=== PATIENT | female | born 1990 | race Caucasian/White ===

== ENCOUNTER 2021-04-29 04:28 | Outpatient (CLI) | payer MEDICAID, SELFPAY ==
[2021-04-29 10:57] LABS: Abs Immature Grans 0.01 10^3/uL (0.0-0.06); Absolute Basophil Count 0.07 10^3/uL (0.0-0.2); Absolute Eosinophil Count 0.11 10^3/uL (0.0-0.7); Absolute Monocyte Count 0.47 10^3/uL (0.1-0.8); Absolute Neutrophil Count 1.45 10^3/uL (1.2-6.7); Basophils % 1.3; HCT 40.2 % (36.0-46.0); HGB 12.9 g/dL (11.2-15.7); Immature Grans % 0.2; Lymphocytes % 61.7; MCH 28.8 pg (27.0-33.0); MCHC 32.1 % (32.0-36.0); MCV 89.7 fL (80-95); MPV 8.9 fL (8.0-11.0); Monocytes % 8.5; Neutrophils % 26.3; Nucleated RBC 0 %; Platelet Count 149 10^3/uL (130-400); RBC 4.48 10^6/uL (3.93-5.22); RDW 12.5 % (11.7-14.6); RDW-SD 41.5 fL; WBC 5.51 10^3/uL (4.4-10.8)
[2021-04-29 11:00] LABS: Bilirubin Negative (Negative); Blood Negative (Negative); Clarity Clear (Clear); Glucose Negative (Negative); Ketones Negative (Negative); Leukocyte Esterase Negative (Negative); Nitrite Negative (Negative); Specific Gravity 1.025 (1.005-1.025); Urobilinogen 0.2 EU/dL (Up TO 0.2); pH 6.5 (5-8)
[2021-04-29 12:07] LABS: ALT 141 U/L (14-59); AST 51 U/L (15-37); Alkaline Phosphatase 74 U/L (46-116); Anion Gap 10.9 mmol/L (3-11); BUN 13 mg/dL (7-18); Bilirubin, Total 0.9 mg/dL (0.2-1.0); CO2 26.1 mmol/L (21.0-32.0); CREATININE 0.8 mg/dL (0.55-1.02); Calcium 8.7 mg/dL (8.5-10.1); Calculated LDL 111 mg/dL (<100); Chloride 102 mmol/L (98-107); Cholesterol 174 mg/dL (<200); Glucose 93 mg/dL (74-106); HDL Cholesterol 51 mg/dL (40-60); Potassium 3.9 mmol/L (3.5-5.1); Sodium 139 mmol/L (136-145); Total Protein 7.6 g/dL (6.4-8.2); Triglyceride 61 mg/dL (<150)
[2021-04-29 17:49] LABS: Progesterone 6.1 ng/mL (See Table)
[2021-04-30 15:38] LABS: Lipoprotein (a) <7 nmol/L (<75)
[2021-05-03 10:09] LABS: 25-Hydroxy D Total 42 ng/mL; 25-Hydroxy D2 <4.0 ng/mL; 25-Hydroxy D3 42 ng/mL
[2021-05-03 11:15] LABS: Estradiol, Mass Spectrometry 128 pg/mL; Estrone 103 pg/mL
[2021-05-04 15:56] LABS: Testosterone, Free 0.21 ng/dL (0.06-1.03); Testosterone, Total 19 ng/dL (8-60)
[2021-05-05 14:16] LABS: Dehydroepiandrosterone (DHEA) 3.9 ng/mL (<10)
== END 2021-04-29 04:29 | disposition home or self-care (01) ==
PROVIDERS: Visit Provider Naturopath
DX: R30.0 Dysuria; E55.9 Vitamin D deficiency, unspecified; Z13.220 Encounter for screening for lipoid disorders
CPT/HCPCS: 36415; 80053; 80061; 82306; 83090; 83695; 84402; 84403; 81003; 82626; 82670; 82679; 84144; 85025

== ENCOUNTER 2021-05-27 04:11 | Outpatient (CLI) | payer MEDICAID, SELFPAY ==
[2021-05-27 10:19] LABS: ALT 40 U/L (14-59); AST 23 U/L (15-37); Alkaline Phosphatase 52 U/L (46-116); Bilirubin, Direct 0.2 mg/dL (0.0-0.2); Bilirubin, Total 1.2 mg/dL (0.2-1.0); Total Protein 7.2 g/dL (6.4-8.2)
[2021-05-31 09:44] LABS: FREE T4 1.06 ng/dL (0.76-1.46); TSH 1.32 uIU/mL (0.36-3.74)
[2021-05-31 16:49] LABS: T3,Free 4.2 pg/mL (2.8-5.3)
[2021-05-31 18:02] LABS: Ferritin 37 ng/mL (10-291)
== END 2021-05-27 04:12 | disposition home or self-care (01) ==
LOC: LBO 04:11
PROVIDERS: Visit Provider Naturopath
DX: R74.01 Elevation of levels of liver transaminase levels (principal)
CPT/HCPCS: 36415; 80076; 82728; 84439; 84443; 84481

== ENCOUNTER 2021-06-17 00:38 | Outpatient (CLI) | payer MEDICAID, SELFPAY ==
--- NOTE | 2021-06-17 | DI.US_ITS ---
Exam(s) US PELVIS TRANSVAGINAL EXAM: US PELVIS TRANSVAGINAL CLINICAL HISTORY: LT OVARIAN CYST, N83.202 TECHNIQUE: Ultrasound performed using standard protocol. COMPARISON: No exams were available for comparison FINDINGS: Pelvic ultrasound was performed transabdominally and transvaginally. The uterus measures 5.8 x 3.2 x 4.0 cm. Endometrial stripe is about 10 millimeters in thickness and appears homogeneous. No focal myometrial abnormality seen. Right ovary measures 34 x 22 x 28 millimeters and left ovary measures 37 x 21 x 40 millimeters. Ther e is an apparent 18 millimeter in diameter corpus luteum on the left. No free fluid identified in the cul-de-sac. Limited scanning of the kidneys is unremarkable. IMPRESSION: Negative pelvic ultrasound with presumed corpus luteum on the left. DATA REPOSITORY:
== END 2021-06-17 00:58 ==
PROVIDERS: Visit Provider Naturopath
DX: N83.12 Corpus luteum cyst of left ovary
CPT/HCPCS: 76830; 76856

== ENCOUNTER 2021-07-19 15:44 | Outpatient (CLI) | payer MEDICAID, SELFPAY ==
[2021-07-19 15:40] LABS: Abs Immature Grans 0.01 10^3/uL (0.0-0.06); Absolute Basophil Count 0.03 10^3/uL (0.0-0.2); Absolute Eosinophil Count 0.09 10^3/uL (0.0-0.7); Absolute Lymphocyte Count 2.41 10^3/uL (1.2-3.4); Absolute Monocyte Count 0.34 10^3/uL (0.1-0.8); Absolute Neutrophil Count 2.33 10^3/uL (1.2-6.7); Basophils % 0.6; Eosinophils % 1.7; HCT 45.1 % (36.0-46.0); HGB 14.8 g/dL (11.2-15.7); Immature Grans % 0.2; Lymphocytes % 46.3; MCHC 32.8 % (32.0-36.0); MCV 88 fL (80-95); MPV 9.5 fL (8.0-11.0); Monocytes % 6.5; Neutrophils % 44.7; Platelet Count 194 10^3/uL (130-400); RBC 5.11 10^6/uL (3.93-5.22); RDW 11.9 % (11.7-14.6); RDW-SD 38.8 fL; WBC 5.21 10^3/uL (4.4-10.8)
[2021-07-19 15:53] LABS: ALT 25 U/L (14-59); AST 17 U/L (15-37); Albumin 4.2 g/dL (3.4-5.0); Alkaline Phosphatase 66 U/L (46-116); Amylase 64 U/L (25-115); Anion Gap 3.7 mmol/L (3-11); BUN 11 mg/dL (7-18); Bilirubin, Total 0.8 mg/dL (0.2-1.0); CO2 29.3 mmol/L (21.0-32.0); CREATININE 0.8 mg/dL (0.55-1.02); Calcium 8.9 mg/dL (8.5-10.1); Chloride 103 mmol/L (98-107); Glucose 94 mg/dL (74-106); Lipase 130 U/L (73-393); Sodium 136 mmol/L (136-145); Total Protein 8.1 g/dL (6.4-8.2)
[2021-07-21 17:10] LABS: Zinc, Serum 0.78 mcg/mL (0.66-1.10)
== END 2021-07-19 15:45 | disposition home or self-care (01) ==
LOC: LBO 15:45
PROVIDERS: Visit Provider Naturopath
DX: R10.13 Epigastric pain (principal); L65.9 Nonscarring hair loss, unspecified
CPT/HCPCS: 36415; 80053; 83690; 82150; 84630; 85025

== ENCOUNTER 2021-07-28 02:16 | Outpatient (CLI) | payer MEDICAID, SELFPAY ==
--- NOTE | 2021-07-28 07:30 | DI.US_ITS ---
Exam(s) US ABDOMEN EXAM: US ABDOMEN INDICATION: EPIGASTRIC PAIN, R10.13 COMPARISON: US US PELVIS TRANSVAGINAL from 06/17/2021 TECHNIQUE: Ultrasound abdomen performed using standard protocol FINDINGS: Abdominal ultrasound was performed according to the usual protocol. The liver is normal in size and shape. No focal hepatic lesion seen. There is no evidence of cholelithiasis or biliary dilatation. No gallbladder wall thickening or peric holecystic fluid collection. Portal venous flow is hepatopetal. Pancreas appears intact as visualized. Spleen is unremarkable in appearance with no focal lesion. Kidneys are normal in size and shape. No renal mass, hydronephrosis, or nephrolithiasis. Abdominal aorta and IVC are of normal diameter. IMPRESSION: Negative abdominal ultrasound .
== END 2021-07-28 02:36 ==
PROVIDERS: Visit Provider Naturopath
DX: R10.13 Epigastric pain (principal)
CPT/HCPCS: 76700

== ENCOUNTER 2021-10-24 10:21 | Outpatient (REF) | payer OTHER, SELFPAY ==
--- NOTE | 2021-10-24 10:40 | PAPFT_PTH ---
PATIENT: Alejandra Hardwick LOC: [facility] U#:[id number] AGE/SX: 31/F ROOM: RE10/24/[address]: Demetria Gay DO : 1990 BED: DIS: 10/24/2021 SPEC #: [id number] RECD: 10/24/21 13:01 STATUS: HAYLEY REQ #: [id number] DIONNE: 10/24/21 10:[address]: Demetria Gay [facility] Cytology RECD BY: Anabell Lauren ENTERED: 10/24/21 13:01 SP TYPE: PAPFT OTHR DR: Unknown,Unknown Tissues: 1 - CX/ENDOCX FOR PAP SMEARS Procedures: PAP THIN PREP/UVM Screening HPV DNA PROBE Comments: [id number] (CHLAMYDIA/GC)
[2021-10-25 15:21] LABS: Chlamydia Result Negative (Negative); GC Result Negative (Negative)
== END 2021-10-24 10:22 | disposition home or self-care (01) ==
LOC: LBN 10:21
PROVIDERS: Visit Provider Obstetrics & Gynecology
DX: Z11.3 Encounter for screening for infections with a predominantly sexual mode of transmission (principal); Z12.4 Encounter for screening for malignant neoplasm of cervix; Z11.51 Encounter for screening for human papillomavirus (HPV)
CPT/HCPCS: 87491; 87591; 88142; 87624

== ENCOUNTER 2021-12-09 01:38 | Outpatient (CLI) | payer OTHER, SELFPAY ==
[2021-12-09 15:03] LABS: Kit/Specimen SENT
== END 2021-12-09 01:39 | disposition home or self-care (01) ==
LOC: LBO 01:38
PROVIDERS: Visit Provider Naturopath
DX: T78.1XXA Other adverse food reactions, not elsewhere classified, initial encounter (principal)
CPT/HCPCS: 36415

== ENCOUNTER 2022-01-27 01:54 | Outpatient (CLI) | payer OTHER, SELFPAY | END 2022-01-27 01:55 | disposition home or self-care (01) | LOC: LBO 01:54 | PROVIDERS: Visit Provider Naturopath | DX: Z31.9 Encounter for procreative management, unspecified (principal) | CPT/HCPCS: 36415; 83520 ==

== ENCOUNTER 2022-02-17 06:57 | Emergency (ER) | payer OTHER, SELFPAY ==
[2022-02-17] VITALS (22 sets, daily range): BP systolic 111–137; BP diastolic 65–97; PULSE 57–92; RESP 10–18; TEMP 37.3; O2SAT 100
--- NOTE | 2022-02-17 06:45 | RT.EKG_ITS ---
APPROVED REPORT Exam: Resting ECG Reason for Exam: Tachycardia Patient Location: E HR:73 bpm ECG Measurements Heart Rate 73 AXIS [place] 128 P 72 QRSd 77 QRS 58 QT 391 T 27 QTc 430 Conclusion Sinus rhythm...normal P axis, V-rate 60- 99 Right atrial enlargement...P>0.25mV 2 lds or<-0.24mV aVR/aVL Minimal ST depression, diffuse leads...ST <-0.03mV, ant/lat/inf Physician: no stemi, stable
--- NOTE | 2022-02-17 07:18 | ED.GENADUL_ITS ---
Discharge Plan Discharge Details Chief Complaint: Palpitatns Primary Care Provider: Unknown,Unknown ED Provider: aLnce Arreola Home Meds and New Rx's Prescriptions: No Action cholecalciferol (vitamin D3) 50 mcg (2,000 unit) capsule 50 mcg PO DAILY prenat.vits,any,pde-ykuf-jbayd Tablet 1 tab PO DAILY Adrenal Essence 50-mg-25 mg- 25 mg-400 mg capsule See Rx Instructions .ROUTE .COMPLEX Label Comments: takes another brand of adrenal support Rx Instructions: Take 60 drops PO TID- tincture form biotin 5 cap PO DAILY Gardasil (PF) 0.5 ML suspension 0.5 ml IM ONCE Qty: 1 ascorbic acid (vitamin C) [Vitamin C] 500 MG tablet,chewable 500 mg PO DAILY Medical Decision Making This is a pleasant 32-year-old female with no significant past medical history who presents today for evaluation of palpitations. Patient states that she woke up this morning and her heart rate was noted to be 163 per her Fitbit she did have some mild tingling in her extremities, and also noted some mild tightness in her chest. Symptoms resolved on their own after a bit of time. She denies any syncope, vomiting, or diarrhea. She denies any IV or illicit drug use. She has noted that she has had small episodes of symptoms like this occasionally over the last few months. For the last year or so she has been taking adrenal support, which is a custom blend of herbal supplements from [employer] [place]. It is a combination of Licoria. Eleuthero, and Astragalas. She does state in the last 2 months that she has slightly increased the dose as recommended by her practitioner. She denies any other new medications. She denies any other complaints at this time. No history of thyroid disease in her family or personally. No change in caffeine intake. No other complaints at this time Exam demonstrates a well-appearing female, heart rate is normal. Blood pressure stable. No signs of toxic appearance. Bedside limited echo demonstrates no wall motion abnormalities, pericardial effusion, or other significant abnormality or signs of right heart strain. Differential is highest for iatrogenic component secondary to herbal supplementation tincture. However differential also includes thyroid disorder, electrolyte abnormality, PE and less likely dehydration. We will evaluate for these, gently rehydrate, monitor closely and reassess Sign Out Yes HPI General Date/Time Provider Initiated Documentation: 02/17/22 07:17 . HPI Narrative: This is a pleasant 32-year-old female with no significant past medical history who presents today for evaluation of palpitations. Patient states that she woke up this morning and her heart rate was noted to be 163 per her Fitbit she did have some mild tingling in her extremities, and also noted some mild tightness in her chest. Symptoms resolved on their own after a bit of time. She denies any syncope, vomiting, or diarrhea. She denies any IV or illicit drug use. She has noted that she has had small episodes of symptoms like this occasionally over the last few months. For the last year or so she has been taking adrenal support, which is a custom blend of herbal supplements from [facility] [employer] [facility]. It is a combination of Licoria. Eleuthero, and Astragalas. She does state in the last 2 months that she has slightly increased the dose as recommended by her practitioner. She denies any other new medications. She denies any other complaints at this time. No history of thyroid disease in her family or personally. No change in caffeine intake. No other complaints at this time Related Data Home Medications Medication Instructions Recorded Confirmed Biotin 5 cap PO DAILY 09/30/12 02/17/22 h papillomavirus vac,qval (PF) 0.5 ml IM ONCE #1 vial 10/21/12 02/17/22 [id number]-20mcg/0.5mL IM susp (Gardasil (PF)) ascorbic acid (vitamin C) 500 mg 500 mg PO DAILY 10/28/12 02/17/22 chewable tablet (Vitamin C) cholecalciferol (vitamin D3) 50 50 mcg PO DAILY 10/24/21 02/17/22 mcg (2,000 unit) capsule prenat.vits,any,oav-bshk-ddwlx 1 tab PO DAILY 10/24/21 02/17/22 vit B5 50 mg-B6 25 mg-PABA 25 See Rx Instructions .Route .COMPLEX 10/24/21 02/17/22 tm-kxtykqagj-zsakrnwt-P.ginseng capsule (Adrenal Essence) Allergies Allergy/AdvReac Type Severity Reaction Status Date / Time No Known Drug Allergies Allergy Unverified 01/12/22 13:55 General Stated Complaint: Palpitatns JANICE: 2 Review of Systems All systems reviewed & are unremarkable except as noted in HPI and below PFSH All Active Problems Subfertility of couple (Acute) Well woman exam with routine gynecological exam (Acute) Medical History ASC-US Pap of 08/2012 Dermoid cyst of left ovary Family History Other Ramirez syndrome Social History Smoking/Tobacco Use Status: Never Smoking risk assessment performed?: Yes Alcohol Intake: current Alcohol Intake frequency: a few times a month Drug use: Never Substance use type: does not use Do you feel safe at home: Yes Do you feel safe in your relationship?: Yes Female Reproductive History Menstrual Duration of menses: 3-5 days control method: none History History 0 Para Hx # Term Pregnancies Multiple births Hx # Pregnancies Ectopic pregnancies AB induced Hx Number of Living Children AB spontaneous Exam Narrative Exam Narrative: 1.Const: Well-nourished, Well-developed, appearing stated age 2.Eyes: PERRL, no conjunctival injection, and symmetrical lids. 3.ENT: Atraumatic external nose and ears. Moist MM. Neck: Symmetric, trachea midline, No thyromegaly. 4.CVS: +S1/S2, No murmurs or gallops. Peripheral pulses 2+ and equal in all extremities. Brisk capillary refill in all extremities. 5.RESP: Unlabored respiratory effort. Clear to auscultation bilaterally. No wheezes rales or rhonchi 6.GI: Soft, Nontender/Nondistended, No hepatosplenomegaly. No guarding or rebound. 7.MSK: Normocephalic/Atraumatic, Extremities w/o deformity or ttp No cyanosis or clubbing, Normal movement of all extremities 8.Skin: Warm, Dry. No rashes or lesions. 9.Neuro: weight loss counselor II-XII grossly intact. Sensation grossly intact, no focal neurologic deficits. 10.Psych: (AAO) x3. Appropriate mood and affect Course Vital Signs Vital signs: Vital Signs Temperature 37.3 C 02/17/22 07:01 Pulse 87 02/17/22 07:01 Respiratory Rate 12 02/17/22 07:01 Blood Pressure 137/87 02/17/22 07:01 Pulse Oximetry 100 02/17/22 07:01 Temperature 37.3 C 02/17/22 07:01 Temperature Source Temporal Artery Scan 02/17/22 07:01 Pulse 87 02/17/22 07:01 Respiratory Rate 12 02/17/22 07:01 Respiratory Effort Non-Labored 02/17/22 07:10 Blood Pressure 137/87 02/17/22 07:01 Blood Pressure Position Sitting 02/17/22 07:01 Pulse Oximetry 100 02/17/22 07:01 Oxygen Delivery Method Room Air 02/17/22 07:01 Oxygen Flow Rate 0 02/17/22 07:01 Pain Level 0 02/17/22 07:01 POCUS Exam (ED) Limited Cardiac Exam DATE OF EXAM: 02/17/22 TIME OF EXAM: 07:26 PROVIDER THAT PERFORMED THE STUDY: Gino Tavarez IS THIS A REPEAT EXAM DURING THIS ENCOUNTER: no REASON FOR EXAM: Chest pain VISUALIZED STRUCTURES: Left atrium, Left ventricle, Right ventricle and Interventricular septum VIEW OBTAINED: Parasternal long-axis PERTINENT FINDINGS/IMPRESSION: No apparent abnormalities Exam complete PAWSS Have you Been Recently Intoxicated or Drunk Within the Last 30 days?: No Have you Ever Experienced Previous Episodes of Alcohol Withdrawal?: No Have you ever Experienced Withdrawal Seizures?: No Have you ever Experienced Delirium Tremens(DT)s?: No Have you ever undergone Alcohol Rehabilitation Treatment (i.e, inpt ot outpatient treatment programs)?: No Have you ever Experienced Blackouts?: No Have you ever Combined Alcohol with other Downers within the last 90 days?: No Have you ever Combined Alcohol with any other Substance of Abuse during the last 90 days?: No Result: 0
[2022-02-17] MEDS: Normal Saline 500 ML IV (07:30)
[2022-02-17 07:48] LABS: Absolute Basophil Count 0.05 10^3/uL (0.0-0.2); Absolute Eosinophil Count 0.21 10^3/uL (0.0-0.7); Absolute Monocyte Count 0.47 10^3/uL (0.1-0.8); Absolute Neutrophil Count 3.06 10^3/uL (1.2-6.7); Basophils % 0.8; Eosinophils % 3.4; HCT 41.3 % (36.0-46.0); Lymphocytes % 37.8; MCH 30.4 pg (27.0-33.0); MCHC 33.9 % (32.0-36.0); MCV 90 fL (80-95); MPV 10.5 fL (8.0-11.0); Monocytes % 7.7; Neutrophils % 50.3; Platelet Count 177 10^3/uL (130-400); RDW 11.5 % (11.7-14.6); RDW-SD 37.7 fL; WBC 6.09 10^3/uL (4.4-10.8)
[2022-02-17 07:51] LABS: Bilirubin Negative (Negative); Blood Trace-intact (Negative); Clarity Clear (Clear); Glucose Negative (Negative); Ketones Negative (Negative); Leukocyte Esterase Negative (Negative); Nitrite Negative (Negative); Specific Gravity 1.015 (1.005-1.025); Urobilinogen 0.2 EU/dL (Up TO 0.2)
[2022-02-17 08:00] LABS: ALT 17 U/L (14-59); AST 13 U/L (15-37); Alkaline Phosphatase 48 U/L (46-116); Anion Gap 6.7 mmol/L (3-11); BUN 12 mg/dL (7-18); Bilirubin, Total 1.3 mg/dL (0.2-1.0); CO2 30.3 mmol/L (21.0-32.0); CREATININE 0.8 mg/dL (0.55-1.02); Calcium 8.9 mg/dL (8.5-10.1); Chloride 101 mmol/L (98-107); Estimated GFR 99.71 (mL/min/1.73m2); Glucose 111 mg/dL (74-106); Potassium 3.5 mmol/L (3.5-5.1); Sodium 138 mmol/L (136-145); TSH (W/Ref FT4) 2.44 uIU/mL (0.36-3.74); Total Protein 7.3 g/dL (6.4-8.2); Troponin I < 50 ng/L (<or=60)
[2022-02-17 08:03] LABS: Bacteria Rare HPF (Negative); C & S Indicated? No; Casts Negative LPF (Negative); Crystals Negative HPF (Negative); Epithelial Cells Negative HPF (Negative); Mucus Negative (Negative); Other Cells Negative (Negative); RBC 0-2 HPF (0-2); WBC Negative HPF (0-5)
[2022-02-17 08:12] LABS: D-Dimer 108 ng/mlFEU (<500)
--- NOTE | 2022-02-17 08:45 | W.EDPROG ---
Date of service: 02/17/22 Time of Service: 08:46 Medical Decision Making Resting comfortably asymptomatic, normotensive nontachycardic. No respiratory symptoms. Labs and EKG unremarkable. Concerned that patient may be having adverse reaction to naturopathic medications which include an adrenal supplement as well as ursa uvi supplement. Counseled patient to consider discontinuing supplementation over the next several days to a week in consultation with her naturopathic physician. Given strict return precautions for worsening symptoms. At this time no evidence of malignant arrhythmia, ischemic disease or PE. Sign Out No Sign Out Sign Out Data: Sign Out Comment: Palpitations, heart rate of 163 at home. Resolved prior to arrival. Follow-up on labs and D-dimer. Expectant discharge if work-up is normal with recommendations to decrease adrenal tincture dose. Last updated by Gino Tavarez DO at 02/17/22 07:28 Discharge Plan Disposition Patient Disposition: Home Condition: Improving Discharge Details Clinical Impression: Palpitations Primary Care Provider: Unknown,Unknown ED Provider: Lance Arreola Home Meds and New Rx's Prescriptions: No Action cholecalciferol (vitamin D3) 50 mcg (2,000 unit) capsule 50 mcg PO DAILY prenat.vits,any,txf-azgq-bitrc Tablet 1 tab PO DAILY Adrenal Essence 50-mg-25 mg- 25 mg-400 mg capsule See Rx Instructions .ROUTE .COMPLEX Label Comments: takes another brand of adrenal support Rx Instructions: Take 60 drops PO TID- tincture form biotin 5 cap PO DAILY Gardasil (PF) 0.5 ML suspension 0.5 ml IM ONCE Qty: 1 ascorbic acid (vitamin C) [Vitamin C] 500 MG tablet,chewable 500 mg PO DAILY Discharge Instructions Instructions: Heart Palpitations (ED) Additional Instructions: Please discuss discontinuing your medications that have been prescribed by your naturopathic physician in order to see if this relieves her symptomatology. Please return to the emergency department for any worsening symptoms. We are working on setting up a Holter monitor as an outpatient Discharge Orders Other Ambulatory Orders: Holter Monitor (Routine) Timeframe: 3 Days Facility: [facility] - Location: Respiratory Therapy Ordered By: Lance Arreola
== END 2022-02-17 09:19 | disposition home or self-care (01) ==
PROVIDERS: Student in an Organized Health Care Education/Training Program; Emergency Provider Emergency Medicine
DX: R00.2 Palpitations (principal); R07.89 Other chest pain
CPT/HCPCS: 36415; 80053; 81025; 93005; 93308; 96360; 99284; 81003; 81015; 84443; 84484; 85025; 85379; 93010

== ENCOUNTER 2022-02-17 08:56 | Outpatient (RCR) | payer OTHER, SELFPAY ==
--- NOTE | 2022-02-17 09:00 | HOLTER_ITS ---
APPROVED REPORT Conclusion This is a 48-hour Holter monitor ordered for tachycardia Rhythm throughout was sinus with an average heart rate of 71. Minimum was 51, maximum 143 There were no significant atrial or ventricular dysrhythmias There was no atrial fibrillation, no high-grade AV block, no pauses greater than 3 seconds Patient symptoms were reported all of which corresponded to sinus rhythm
== END 2022-03-01 23:59 | disposition home or self-care (01) ==
LOC: RT 08:56
PROVIDERS: Visit Provider Naturopath
DX: R00.0 Tachycardia, unspecified (principal)
CPT/HCPCS: 93225; 93226

== ENCOUNTER 2022-03-17 01:11 | Outpatient (CLI) | payer OTHER, SELFPAY ==
[2022-03-17 15:58] LABS: Hemoglobin A1C 5.3 % (<5.7)
[2022-03-19 17:52] LABS: Progesterone 10.7 ng/mL (See Table)
[2022-03-20 09:28] LABS: DHEA Sulfate 296 ug/dL (96-512)
[2022-03-24 14:23] LABS: Testosterone, Total 19 ng/dL (8-60)
== END 2022-03-17 01:12 | disposition home or self-care (01) ==
LOC: LBO 01:11
PROVIDERS: Visit Provider Obstetrics & Gynecology Reproductive Endocrinology
DX: R20.2 Paresthesia of skin (principal); Z13.1 Encounter for screening for diabetes mellitus; Z83.3 Family history of diabetes mellitus; N92.5 Other specified irregular menstruation
CPT/HCPCS: 36415; 82627; 84402; 84403; 83036; 83735; 84144

== ENCOUNTER 2022-05-22 13:48 | Outpatient (REF) | payer OTHER, SELFPAY ==
[2022-05-22 17:01] LABS: ALT 23 U/L (14-59); AST 15 U/L (15-37); Albumin 4.4 g/dL (3.4-5.0); Alkaline Phosphatase 50 U/L (46-116); Anion Gap 6.7 mmol/L (3-11); BUN 13 mg/dL (7-18); CO2 29.3 mmol/L (21.0-32.0); CREATININE 0.8 mg/dL (0.55-1.02); Calcium 9.3 mg/dL (8.5-10.1); Chloride 104 mmol/L (98-107); Estimated GFR 99.71 (mL/min/1.73m2); Glucose 97 mg/dL (74-106); Potassium 4.1 mmol/L (3.5-5.1); Sodium 140 mmol/L (136-145); Total Protein 7.6 g/dL (6.4-8.2)
== END 2022-05-22 13:49 | disposition home or self-care (01) ==
LOC: NCHCN 13:48
PROVIDERS: Visit Provider Nurse Practitioner Family
DX: R74.8 Abnormal levels of other serum enzymes (principal)
CPT/HCPCS: 80053

== ENCOUNTER 2022-05-25 13:19 | Outpatient (REF) | payer OTHER, SELFPAY ==
[2022-05-25 15:27] LABS: ESR 3 mm/hr (0-20)
[2022-05-25 15:39] LABS: C-Reactive Protein < 0.05 mg/dL (0.0-0.3)
[2022-05-26 10:33] LABS: Cyclic Citrullinated Peptide <2.5 U/mL (<5.0)
[2022-05-29 12:06] LABS: Mycoplasma hominis PCR Negative
[2022-05-29 12:20] LABS: Specimen Source Vaginal/Cervical; Ureaplasma parvum PCR Positive; Ureaplasma urealyticum PCR Negative
== END 2022-05-25 13:20 | disposition home or self-care (01) ==
LOC: NCHCN 13:19
PROVIDERS: Visit Provider Nurse Practitioner Family
DX: Z31.41 Encounter for fertility testing (principal); Z82.61 Family history of arthritis
CPT/HCPCS: 85652; 86200; 86140; 87109; 87798

== ENCOUNTER 2022-07-07 15:40 | Outpatient (REF) | payer OTHER, SELFPAY | END 2022-07-07 15:41 | disposition home or self-care (01) | LOC: NCHCN 15:40 | PROVIDERS: Visit Provider Nurse Practitioner Family | DX: J02.9 Acute pharyngitis, unspecified (principal) | CPT/HCPCS: 87070 ==

== ENCOUNTER 2023-04-20 14:52 | Outpatient (REF) | payer OTHER, SELFPAY ==
--- OUTSIDE RECORDS SUMMARY | 2023-04-20 15:13 | XMS_ITS | Continuity of Care Document ---
Author Name Unknown Organization [facility] Address [address] [place] [address] Care Team Providers Care Dealer Compliance Representative Name Role Phone Unavailable, Physician Primary Care Physician Un available Encounter [facility] NBR [id number] Date(s): 08/22/22 - 08/22/22 [facility] [address] [place] [address]- Discharge Disposition: Home or Self Care Attending Physician: Unavailable, Physician Admitting Physician: Unavailable, Physician Referring Physician: Unavailable, Physician Patient Care team information Care Team Personnel Name: Unavailable, Physician Position: No Access Member Role: Primary Care Physician
[2023-04-20 15:44] LABS: Anion Gap 8.4 mmol/L (3-11); BUN 16 mg/dL (7-18); CO2 29.6 mmol/L (21.0-32.0); CREATININE 0.8 mg/dL (0.55-1.02); Calcium 9.5 mg/dL (8.5-10.1); Chloride 103 mmol/L (98-107); Estimated GFR 99.09 (mL/min/1.73m2); Glucose 91 mg/dL (74-106); Potassium 3.9 mmol/L (3.5-5.1); Sodium 141 mmol/L (136-145); TSH (W/Ref FT4) 1.64 uIU/mL (0.36-3.74)
[2023-04-20 16:27] LABS: Vitamin B12 1347 pg/mL (193-986)
== END 2023-04-20 14:53 | disposition home or self-care (01) ==
LOC: NCHCN 14:52
PROVIDERS: Visit Provider Nurse Practitioner Family
DX: R20.2 Paresthesia of skin (principal)
CPT/HCPCS: 80048; 82607; 84443

== ENCOUNTER 2023-07-24 14:35 | Outpatient (REF) | payer OTHER, SELFPAY ==
[2023-07-25 12:20] LABS: Campylobacter PCR Negative (Negative); Salmonella PCR Negative (Negative); Shiga Toxin PCR Negative (Negative); Shigella/Enteroinvasive Ecoli Negative (Negative)
== END 2023-07-24 14:36 | disposition home or self-care (01) ==
LOC: NCHCN 14:35
PROVIDERS: Visit Provider Physician Assistant
DX: R19.7 Diarrhea, unspecified (principal)
CPT/HCPCS: 87329; 87338; 87493; 87505; 87177

== ENCOUNTER 2024-03-24 13:02 | Outpatient (REF) | payer SELFPAY ==
--- NOTE | 2024-03-24 13:00 | PAPFT_PTH ---
PATIENT: Alejandra Hardwick LOC: [facility] U#:[id number] AGE/SX: 34/F ROOM: RE03/24/[address]: Demetria Gay DO : 1990 BED: DIS: 03/24/2024 SPEC #: [id number] RECD: 03/24/24 13:30 STATUS: SOUT REQ #: [id number] DIONNE: 03/24/24 13:[address]: Demetria Gay DEPT: [facility] Cytology RECD BY: Anabell Lauren ENTERED: 03/24/24 13:31 SP TYPE: PAPFT OTHR DR: Unknown,Unknown Tissues: 1 - CX/ENDOCX FOR PAP SMEARS Procedures: PAP THIN PREP/UVM Screening HPV DNA PROBE Comments: [id number] (HPV 16 & 18/45)
== END 2024-03-24 13:03 | disposition home or self-care (01) ==
LOC: LBN 13:02
PROVIDERS: Visit Provider Obstetrics & Gynecology
DX: Z01.419 Encounter for gynecological examination (general) (routine) without abnormal findings (principal)
CPT/HCPCS: 88142; 87624

== ENCOUNTER 2024-11-07 22:34 | Emergency (ER) | payer SELFPAY ==
--- NOTE | 2024-11-07 22:45 | RT.EKG_ITS ---
APPROVED REPORT Exam: Resting ECG Reason for Exam: chest pain Patient Location: E HR:74 bpm ECG Measurements Heart Rate 74 AXIS HI 140 P 63 QRSd 83 QRS 46 QT 414 T 31 QTc 459 Conclusion Sinus rhythm...normal P axis, V-rate 60- 99 Physician: Normal EKG. No STEMI. No epsilon, delta wave, or evidence of de Soriano waves, Brugada syndrome, or other abnormality. Intervals normal.
[2024-11-07 22:53] VITALS: BP 145/86; PULSE 72; RESP 18; TEMP 37; O2SAT 100
--- NOTE | 2024-11-07 23:18 | W.ED.GENAD ---
Discharge Plan Disposition Patient Disposition: Home Condition: Good Discharge Details Clinical Impression: Dehydration, Mild hypertension Primary Care Provider: Unknown,Unknown ED Provider: Gino Tavarez Home Meds and New Rx's Prescriptions: No Action prenat.vits,any,cdt-zsop-laolm Tablet 1 tab PO DAILY ascorbic acid (vitamin C) [Vitamin C] 500 MG tablet,chewable 500 mg PO DAILY Discharge Instructions Instructions: Dehydration, Adult ED Additional Instructions: At this time the workup that we have performed has returned reassuring. There is no evidence of protein in your urine, infection, significant cardiac abnormality, or evidence of severe electrolyte abnormality on your EKG. While your blood pressure is mildly elevated, there is not clear evidence of a severe life-threatening etiology associated with it at this time. However it is very important that you follow-up closely with your primary care provider for reassessment to see if this is improving or persists. If it does persist it may need further medication management down the road. In the meantime, please drink plenty of fluids and stay well-hydrated. Avoid excessive caffeine. If at any point your symptoms return or worsen, you would be my recommendation that you return here for the blood work that we previously discussed. If you notice any worsening of your symptoms, or any new symptoms such as vomiting, diarrhea, fever, chills, shortness of breath, chest pain, numbness, weakness, or fainting , please return immediately to the emergency department for reevaluation. Please follow up with your primary care provider as soon as possible for reassessment and reevaluation. As always, it was a pleasure participating in your medical care today. Discharge Data Discharge Date/Time-TO BE ENTERED AT DEPARTURE: 11/08/24 00:39 HPI General Date/Time Provider Initiated Documentation: 11/07/24 22:35. 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 Patient states that she had a long week this week, as well as a long day. This evening she had not drank much throughout the day, is feeling tired, she had not Arbon caffeinated beverage with 50 mg of caffeine, that was at 4:30 PM. Then about an hour or so later she had some dark chocolate as well. At about 10:30 PM she noticed tingling in her hands and feet, she felt quite shaky, she checked her blood pressure and it was high, and also noticed that she was feeling some mild palpitations, but no change in heart rate. Because of the symptoms she presented to the ER for further assessment. She denies fever or chills. She denies numbness or weakness. She denies syncope, or presyncopal symptoms. She denies any chest pain or chest discomfort. No pleuritic chest pain. She does not take any herbal supplements at this time. She denies any current medications otherwise. She denies any IV or illicit drug use. She denies fever or chills or vomiting or diarrhea. No other complaints at this time. No other modifying factors. Related Data Home Medications ?Medication ?Instructions ?Recorded ?Confirmed ascorbic acid (vitamin C) 500 mg 500 mg PO DAILY 10/28/12 02/17/22 chewable tablet (Vitamin C) prenat.vits,any,uzu-nayt-rmfee 1 tab PO DAILY 10/24/21 02/17/22 Allergies Allergy/AdvReac Type Severity Reaction Status Date / Time No Known Drug Allergies Allergy Other (See Unverified 03/24/24 12:36 Comment) General JANICE: 2 Exam Narrative Exam Narrative: 1.Const: Well-nourished, Well-developed, appearing stated age 2.Eyes: PERRL, no conjunctival injection, and symmetrical lids. 3.ENT: Atraumatic external nose and ears. Notably dry t MM. Neck: Symmetric, trachea midline, No thyromegaly. 4.CVS: +S1/S2, Peripheral pulses 2+ and equal in all extremities. Brisk capillary refill in all extremities. 5.RESP: Unlabored respiratory effort. Clear to auscultation bilaterally. No wheezes rales or rhonchi 6.GI: Soft, Nontender/Nondistended, No hepatosplenomegaly. No guarding or rebound. 7.MSK: Normocephalic/Atraumatic, Extremities w/o deformity or ttp No cyanosis or clubbing, Normal movement of all extremities 8.Skin: Warm, Dry. No rashes or lesions. 9.Neuro: electrician marine II-XII grossly intact. Sensation grossly intact, no focal neurologic deficits. All 6 cardinal planes of vision are fully intact. No evidence of rotatory or vertical nystagmus. The patient demonstrated a normal [id number]-icdc-qhwoyf, good dexterity. There was no evidence of dysdiadochokinesia. Patient was able to ambulate without difficulty. There was no wide-based gait. Romberg testing was normal. Mwjx-so-ivgz testing was normal. Sensation was intact bilaterally as well as muscle strength bilaterally for all extremities. Patient was able to verbalize butter cup with no slurring, or miss pronunciation. 10.Psych: (AAO) x3. Appropriate mood and affect Course Lab/Test Results Lab/Test Results: Laboratory Tests Range/Units 11/07/24 11/07/24 22:57 23:57 WBC Cancelled RBC Cancelled Hgb Cancelled Hct Cancelled MCV Cancelled MCH Cancelled MCHC Cancelled RDW Cancelled Plt Count Cancelled MPV Cancelled Immature Gran % Cancelled Neutrophils % Cancelled Band Neutrophils % Cancelled Lymphocytes % Cancelled Atypical Lymphs % Cancelled Monocytes % Cancelled Eosinophils % Cancelled Basophils % Cancelled Metamyelocytes % Cancelled Myelocytes % Cancelled Promyelocytes % Cancelled Other Cells % Cancelled Nucleated RBC % Cancelled Absolute Neutrophils Cancelled Absolute Lymphocytes Cancelled Absolute Monocytes Cancelled Absolute Eosinophils Cancelled Absolute Basophils Cancelled RBC Morphology Cancelled Polychromasia Cancelled Hypochromasia Cancelled Poikilocytosis Cancelled Basophilic Stippling Cancelled Anisocytosis Cancelled Microcytosis Cancelled Macrocytosis Cancelled Spherocytes Cancelled Tear Drop Cells Cancelled Ovalocytes Cancelled Stomatocytes Cancelled Horton-Day Bodies Cancelled Aurora Cells/Echinocytes Cancelled Acanthocytes (Spur) Cancelled Schistocytes Cancelled Sodium Cancelled Potassium Cancelled Chloride Cancelled Carbon Dioxide Cancelled Anion Gap Cancelled BUN Cancelled Creatinine Cancelled Est GFR (CKD-EPI 2020) Cancelled Glucose Cancelled Calcium Cancelled Magnesium Cancelled Total Bilirubin Cancelled AST Cancelled ALT Cancelled Alkaline Phosphatase Cancelled Troponin I Cancelled Cancelled NT-Pro-B Natriuret Pep Cancelled Total Protein Cancelled Albumin Cancelled TSH Cancelled Medical Decision Making This is a pleasant 34-year-old female with no significant past medical history except for 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 Patient states that she had a long week this week, as well as a long day. This evening she had not drank much throughout the day, is feeling tired, she had not Arbon caffeinated beverage with 50 mg of caffeine, that was at 4:30 PM. Then about an hour or so later she had some dark chocolate as well. At about 10:30 PM she noticed tingling in her hands and feet, she felt quite shaky, she checked her blood pressure and it was high, and also noticed that she was feeling some mild palpitations, but no change in heart rate. Because of the symptoms she presented to the ER for further assessment. She denies fever or chills. She denies numbness or weakness. She denies syncope, or presyncopal symptoms. She denies any chest pain or chest discomfort. No pleuritic chest pain. She does not take any herbal supplements at this time. She denies any current medications otherwise. She denies any IV or illicit drug use. She denies fever or chills or vomiting or diarrhea. No other complaints at this time. No other modifying factors. Physical exam demonstrates no significant abnormalities. No thyroid megaly or thyroid nodules. Blood glucose sugar normal. Initial blood pressure slightly elevated at 145/86, however this normalized after short course of observation. Heart rate normal. EKG was performed and demonstrates No STEMI. No epsilon, delta wave, or evidence of de Soriano waves, Brugada syndrome, or other abnormality. Intervals normal. No evidence to suggest hyper or hypokalemia. No significant interval abnormality to suggest significant calcium disruption. Urinalysis was obtained and shows no proteinuria, no . No evidence to suggest nephritic or nephrotic syndrome. Patient's mucous membranes are notably dry, and I suspect her symptomatology is secondary to late-night caffeine in combination with dehydration. Patient was given oral fluids, and she felt much better after these. I did discuss IV labs for further electrolyte evaluation, thyroid function, and cardiac evaluation. Patient has declined these at this time. Orders have been canceled. Patient feels much better, vital signs blood pressure is normalized. Patient would like to go home. I do feel that this is reasonable. Recommend continued hydration at home, avoidance of excessive caffeinated products, and prompt return if her symptoms worsen or return. Discussed red flags for which to return. I have extensively reviewed the treatment plan and discharge instructions with the patient and their family. I have addressed all patient concerns at this time. The patient and family was made aware of what symptoms to monitor for that would warrant a return to the emergency department. Discussed the plan with the patient and family, they demonstrate verbal understanding and agreement with our assessment and plan at this time. The documentation in this chart was dictated using [employer] dictation software. Please excuse any dictation errors. Normal EKG. No STEMI. No epsilon, delta wave, or evidence of de Soriano waves, Brugada syndrome, or other abnormality. Intervals normal. Quality:SDOH Health Related Social Needs: Health related social needs material hardship lonely/isolated Health related social needs details none PFSH All Active Problems (Updated 11/08/24 @ 00:22 by Gino Tavarez DO) Mild hypertension (Acute) Dehydration (Acute) Subfertility of couple (Acute) Well woman exam with routine gynecological exam (Acute) Medical History ASC-US Pap of 08/2012 Dermoid cyst of left ovary Family History Other Ramirez syndrome Social History Smoking/Tobacco Use Status: Never Smoking risk assessment performed?: Yes Alcohol Intake: current Alcohol Intake frequency: a few times a month Drug use: Never Substance use type: does not use Housing: house Do you feel safe at home: Yes Do you feel safe in your relationship?: Yes Female Reproductive History Menstrual Duration of menses: 3-5 days control method: none History History 0 Para Hx # Term Pregnancies Multiple births Hx # Pregnancies Ectopic pregnancies AB induced Hx Number of Living Children AB spontaneous
[2024-11-08 00:03] LABS: Glucose Negative (Negative)
[2024-11-08 00:31] VITALS: BP 123/76; PULSE 61; RESP 16; O2SAT 99
[2024-11-08 00:35] VITALS: BP 123/76; PULSE 61; RESP 16; TEMP 37; O2SAT 100
== END 2024-11-08 00:39 | disposition home or self-care (01) ==
PROVIDERS: Emergency Provider Student in an Organized Health Care Education/Training Program
DX: E86.0 Dehydration (principal); I10 Essential (primary) hypertension; R00.2 Palpitations
CPT/HCPCS: 99284; 99283; 36416; 82962; 81025; 80053; 93005; 81003; 83735; 83880; 84443; 84484; 85025; 93010